=== PATIENT | female | born 1985 ===

== ENCOUNTER 2017-09-06 09:59 | Inpatient (IN) | payer MEDICAID ==
[~2017-09-06] VITALS: Ht 160 cm; Wt 73.2 kg
[2017-09-06] VITALS (29 sets, daily range): BP systolic 107–162; BP diastolic 59–89; PULSE 53–84; TEMP 97.5–98.2
[2017-09-06 10:50] LABS: BASO # 0.1 (0.0-0.2); BASO % 0.4 % (0.0-2.0); EOS # 0.2 (0.0-0.7); EOS % 1.8 % (0-4.0); GRAN % 71.3 % (42.2-75.2); HEMATOCRIT 33.8 % (37.0-47.0); HEMOGLOBIN 11.2 g/dl (12.5-16.0); LYMPH # 2.1 (1.2-3.4); MEAN CELL VOLUME 96 fl (80.0-100.0); MEAN CORPUSCULAR HEMOGLOBIN 32 pg (27.0-31.0); MEAN CORPUSCULAR HGB CONC 33 g/dl (33.0-37.0); MEAN PLATELET VOLUME 10.7 fl (7.4-10.4); MONO # 0.7 (0.1-0.6); MONO % 6.2 % (1.7-9.3); PLATELET COUNT 235 K/mm3 (130-400); RED BLOOD COUNT 3.51 M/mm3 (4.10-5.30); REDCELL DISTRIBUTION WIDTH-CV 12.4 % (11.5-14.5)
[2017-09-06] MEDS ORDERED: PRENATAL MVI (10:53)
[2017-09-06] MEDS ORDERED: PROZAC40 MG PO (10:53)
[2017-09-06] MEDS ORDERED: PROAIR HFA0.09 MG/AC IH (10:54)
[2017-09-06 11:04] LABS: TRICYCLIC ANTIDEPRESS URINE NEGATIVE
[2017-09-07 00:35] VITALS: BP 121/76; PULSE 60; TEMP 97.5
[2017-09-07 04:30] VITALS: BP 134/79; PULSE 56; TEMP 97.7
[2017-09-07 08:32] VITALS: BP 113/64; PULSE 56; TEMP 97.1
[2017-09-07] MEDS ORDERED: IBU600 MG PO (10:12)
[2017-09-07 12:45] VITALS: BP 129/75; PULSE 74; TEMP 97.6
[2017-09-07 16:55] VITALS: BP 128/87; PULSE 60; TEMP 97.9
== END 2017-09-07 17:30 | disposition home or self-care (01) | DRG 775 ==
LOC: LDRO 09:59 → LDR 10:00 → OB 17:45 → LDRO 09-20 08:27
PROVIDERS: Obstetrics & Gynecology
PROC: 10E0XZZ Delivery of Products of Conception, External Approach (ICD-10-PCS; principal; 2017-09-06)
DX: O42.02 Full-term premature rupture of membranes, onset of labor within 24 hours of rupture (principal); O99.334 Smoking (tobacco) complicating childbirth; F17.210 Nicotine dependence, cigarettes, uncomplicated; Z3A.38 38 weeks gestation of pregnancy; Z37.0 Single live birth
CPT/HCPCS: J2590; J7120